=== PATIENT | female | born 1940 | race American Indian/Alaskan Native ===

== ENCOUNTER 2016-08-14 11:07 | Emergency (ER) | payer MEDICARE ==
[2016-08-14 11:41] VITALS: BP 166/73
--- NOTE | 2016-08-14 12:05 | XRay Report ---
LEFT KNEE, 3 VIEWS: History: Pain after fall. Findings: [id number] tricompartmental osteoarthritic changes are identified. 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 Small joint effusion. No displaced fracture or bone lesion is appreciated. Impression: Advanced osteoarthritic changes as described.
[2016-08-14] MEDS ORDERED: MOTRIN PO ONE (14:01)
--- NOTE | 2016-08-14 14:16 | Emergency Department Report ---
Entered by KAYLA VELÁZQUEZ, acting as scribe for EDITH MARCUS PA. ED Lower Extremity HPI - General Chief Complaint: Extremity Injury, Lower Stated Complaint: FELL OUTSIDE WORKING IN THE YARD Time Seen by Provider: 08/14/16 13:50 Source: patient, family Mode of arrival: Ambulatory Limitations: Physical Limitation, Other (Hx of dementia, patient is with family) - History of Present Illness Initial Comments: 76 y/o female with PMHx of HTN and dementia, presents to the ED c/o left knee pain and swelling following a fall that occurred 3 days ago. Per the patient's family, the patient was working outside in the yard when she fell over, hitting the left knee. Associated symptom of left knee abrasion, but she denies SOB, chest pain, nausea, vomiting, LOC, abdominal pain, weakness, and numbness. No LOC at the time of the fall and the patient is at baseline per family. Patient has been given Tylenol for the symptoms. Patient has unknown type of left knee surgery, 30 years ago. MD Complaint: knee injury (pain and tenderness) -: days(s) (3 days ago) - Related Data Allergies Allergy/AdvReac Type Severity Reaction Status Date / Time No Known Allergies Allergy Verified 08/14/16 11:41 ED Review of Systems Comment: All other systems reviewed and negative Constitutional: denies: chills, fever Respiratory: denies: cough, shortness of breath Cardiovascular: denies: chest pain Gastrointestinal: denies: abdominal pain, nausea, vomiting Musculoskeletal: other (left knee pain, swelling, and tenderness) Neurological: denies: headache, weakness, numbness, other (LOC) ED Past Medical Hx - Past Medical History Previous Medical History?: Yes Hx Hypertension: Yes Hx Dementia: Yes - Surgical History Past Surgical History?: Yes Additional Surgical History: left knee surgery - Social History Smoking Status: Former Smoker Substance Use Type: None ED Physical Exam - General Limitations: Physical Limitation - Other Other exam information: GENERAL: Patient is alert and at baseline per family. No apparent distress, atraumatic. HEAD: Head is normocephalic and atraumatic. EYES: Extraocular movements are intact. Pupils are equal, round, and reactive to light and accommodation. EARS: Symmetrical, atraumatic, non tender, ear canal clear with moderate cerumen , tympanic membrane non inflamed. Gross auditory nml bilaterally. NOSE: Nose symmetrical, nontender. Nares appeared normal. MOUTH:Mouth is well hydrated and without lesions. Mucous membranes are moist. Uvula midline. Tongue not elevated. Posterior pharynx clear, no exudate or lesions. Tonsils are not erythematous or swollen. Patent airway. NECK: Supple. Non edematous, no carotid bruits. No lymphadenopathy or thyromegaly. LUNGS: Symmetrical with respiration. No wheezing, rales or crackles, CTAB. HEART: Regular rate and rhythm with normal S1/S2 present. No murmurs, rubs, or gallops. ABDOMEN: Soft, nondistended. Nontender to palpation on all quadrants. No organomegaly was noted. Positive bowel sounds. No CVA tenderness. EXTREMITIES/MUSCULOSKELETAL: No cyanosis, clubbing, rash, lesions or edema. Full ROM of the RLE, limited ROM of the left knee secondary to pain. UE/LE Pulses 2+ bilaterally. Left knee pain, swelling, and tenderness noted. SKIN: Warm and dry. Noted are some mild abrasions to the left knee and an old- appearing 8cm surgical scar that is well-healed and consistent with the patient' s PSHx. NEUROLOGIC: No focal deficit, patient at baseline per family. ED Course Vital Signs 08/14/16 11:35 Pulse Rate 83 Respiratory 18 Rate Blood Pressure 166/73 O2 Sat by Pulse 99 Oximetry ED Lower Extremity MDM - Radiology Data Radiology results: report reviewed, image reviewed LEFT KNEE, 3 VIEWS: History: Pain after fall. Findings: [id number] tricompartmental osteoarthritic changes are identified. 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 Small joint effusion. No displaced fracture or bone lesion is appreciated. Impression: Advanced osteoarthritic changes as described. Transcribed By: TTR Dictated By: DAVY PRIETO JR, MD Electronically Authenticated By: DAVY PRIETO JR, MD Signed Date/Time: 08/14/16 1158 - Medical Decision Making Patient was evaluated by the provider in fast track. 76 y/o female presents complaining of left knee pain and swelling secondary to fall that occurred 3 days ago. The patient's left knee X-ray shows advanced osteoarthritic changes and small joint effusion, but no fracture or displacement. Discussed with the patient's family member to watch the patient for the next couple of days and to follow up with the patient's PCP. The patient's family was told to return to the ED if her symptoms return or worsen. Patient's family states understanding and will follow instructions. Vital signs stable. Patient is in no acute distress and at baseline per family. ED Disposition Clinical Impression: Knee pain, acute Qualifiers: Laterality: left Qualified Code(s): M25.562 - Pain in left knee Disposition: DISCHARGED TO HOME OR SELFCARE Is pt being admited?: No Does the pt Need Aspirin: No Condition: Stable Additional Instructions: Patient needs to wear the knee immobilizer as prescribed. Can take over-the- counter Tylenol or Motrin for pain. Follow-up with her primary care provider is very important. Referrals: PRIMARY CARE,MD [Primary Care Provider] - 3-5 Days XIOMARA PUTNAM MD [Staff Physician] - 3-5 Days Forms: Work/School Release Form(ED) This documentation as recorded by the MELANIA desai GRACE,accurately reflects the service I personally performed and the decisions made by ,EDITH MARCUS PA.
== END 2016-08-14 14:26 | disposition home or self-care (01) ==
LOC: ED 11:07
DX: M25.562 Pain in left knee (principal); I10 Essential (primary) hypertension; F03.90 Unspecified dementia, unspecified severity, without behavioral disturbance, psychotic disturbance, mood disturbance, and anxiety; Z87.891 Personal history of nicotine dependence